=== PATIENT | female | born 2000 | race Caucasian/White ===

== ENCOUNTER 2022-01-19 14:40 | Emergency (ER) | payer SELFPAY ==
[2022-01-19 14:41] VITALS: BP 143/85; PULSE 126; RESP 20; TEMP 36.1; O2SAT 99; BMI 23.3
--- NOTE | 2022-01-19 15:15 | ED.VIS.DYS ---
HPI History of Present Illness Chief Complaint: Shortness of Breath Informant: patient Narrative Narrative: Patient is a 21-year-old female with history of anxiety and lung problems since having Covid in 2020. Patient states she was never hospitalized for Covid. States her breathing is been messed up since. She notes for over the past few days she has been more short of breath and having chest tightness. She states she will intermittently get a pulsating/sharp pain in her chest that last for less than a minute. She is been using her albuterol inhaler 2-4 times a day and is not really helping anymore. She feels that she is wheezing. She has a mild cough. Denies any fever. Denies any nasal congestion or sore throat. She went to an urgent care and they listen to her lungs and were concerned so they recommend she come to the emergency room. Patient is never seen critical care educator for her breathing stating she does not have insurance. She does not have a formal diagnosis of asthma. No other complaints at this time. She denies any tobacco use. She states she smokes marijuana infrequently. Has not used any recently. Is not concerned for . Is not on any medications on a daily basis. [facility] Home Medications albuterol 90 mcg INHALATION PRN PRN 01/19/22 [History Last Taken Unknown] prednisone 40 mg PO DAILY #8 tab 01/19/22 [Rx Last Taken Unknown] Allergy/AdvReac Type Severity Reaction Status Date / Time No Known Allergies Allergy Verified 01/19/22 14:43 Social History Smoking Status: Never smoker [facility] ED Constitutional Constitutional ED: Denies chills or fever(s) Eyes Eyes: Denies change in vision ENT ENT ED: Denies ear pain, rhinorrhea or sore throat Cardiovascular Cardiovascular: Reports chest pain; Denies palpitations or racing heartbeat Respiratory/Chest Respiratory/Chest: Reports cough and dyspnea; Denies dyspnea on exertion Gastrointestinal Gastrointestinal: Denies abdominal pain, diarrhea or vomiting Genitourinary Genitourinary ED: Denies dysuria or hematuria Musculoskeletal Musculoskeletal: Denies arthralgias or myalgias Integumentary Denies rash Neurologic Neurologic: Denies headache(s) or weakness Psychiatric Psychiatric: Denies depression EXAM Physical Exam Const Vital Signs: 01/19/22 14:41 01/19/22 15:11 01/19/22 15:43 Temperature 96.9 F L Temperature Source Temporal Pulse Rate 126 H Respiratory Rate 20 H 20 H Respiratory Effort Short of Breath Respiratory Depth Normal Respiratory Pattern Tachypnea Normal Blood Pressure 143/85 H Blood Pressure Mean 104 Pulse Ox 99 Oxygen Delivery Method Room Air 01/19/22 16:19 Temperature Temperature Source Pulse Rate 98 Respiratory Rate 18 Respiratory Effort Respiratory Depth Respiratory Pattern Blood Pressure 115/77 Blood Pressure Mean 89 Pulse Ox 100 Oxygen Delivery Method Room Air Positive well nourished and well developed General Appearance ED: well developed and NAD HEENT Reports TM's clear and moist mucous membranes HEENT Narrative: Normal oropharynx atraumatic Tympanic Membrane ED: Yes TM's clear Eyes PERRL and EOMs intact bilaterally Neck no lymphadenopathy, supple, no meningeal signs and no JVD Resp normal respiratory effort Resp Narrative: Patient has diminished breath sounds as well as rhonchi at the bases and expiratory wheezing present Auscultation: diminished lung sounds GI non-tender and non-distended Palpation: soft Back/Spine normal to inspection Extremity normal to inspection General Extremety ED: Negative for edema or tenderness General Extremity: Negative for edema Neuro oriented x3 Sensorium / Orientation: alert Motor Exam: Negative for general weakness Psych mental status grossly normal Skin Lesions: no lesions Rashes: no rashes MDM MDM MDM Narrative Medical decision making narrative: Patient evaluated for chest tightness and wheezing. Initially she is tachycardic however her blood pressure is normal and she is not tachypneic. Patient overall is very well-appearing and presentation is consistent with reactive airway/asthma exacerbation. Patient is given a dose of prednisone and a DuoNeb/albuterol aerosol. Patient significant for with the symptoms. Low suspicion for any other more severe cause of her symptoms such as pneumonia, ACS, pericarditis or PE. Discussed with patient her most likely diagnosis is reactive airway however I cannot completely rule out more severe processes. She is comfortable just doing breathing treatments and steroids at this time especially as she has improvement with it. She will return to the emergency room if her symptoms worsen or change. Patient discharged home in stable condition. She is given outpatient resources for [facility] as she does not have insurance or primary care doctor. Discharge Plan Triage Chief Complaint: Shortness of Breath ED Provider: Godman,Alejandra Dx/Rx/DC Orders Clinical Impression: Reactive airway disease with wheezing, Shortness of breath Instructions: ED Bronchitis with Wheezing (Adult) Prescriptions: New prednisone 20 mg tablet 40 mg PO DAILY Qty: 8 RF: 0 No Action albuterol 90 mcg/actuation Aerosol 90 mcg INHALATION PRN PRN (Reason: shortness of breath) RF: 0 Primary Care Provider: Care Physician,No Primary Referrals: Marcy Galloway [NON-STAFF] - Care Physician,No Primary [Primary Care Provider] - Activity Restrictions/Additional Instructions: Continue using your inhaler. For the next 24 hours you may use it up to every 4 hours and after that every 6 hours as needed for shortness of breath. Return if you develop worsening symptoms, including difficulty breathing, more severe chest pain or high fever. Disposition Disposition: Home, Self Care
[2022-01-19] MEDS: predniSONE 20 MG Tablet 60 MG PO (15:23)
[2022-01-19] MEDS: Ipratropium/Albuterol Sulfate 3 ML AMPUL.NEB INHALATION (15:40)
[2022-01-19] MEDS: Albuterol 2.5 MG/3 ML VIAL.NEB. INHALATION (15:40)
[2022-01-19 15:43] VITALS: RESP 20
[2022-01-19 16:19] VITALS: BP 115/77; PULSE 98; RESP 18; O2SAT 100
--- NOTE | 2022-01-19 16:20 | CM.ED ---
FITO Note Referral Source: Case Find Referral Reason : No PCP SW reviewed patient's chart. Patient has no PCP. Patient also has no insurance. SW provided patient with a financial packet. SW remains available if needs arise. Plan: Resources provided Nadira ROSSI
[2022-01-19 16:32] VITALS: BP 126/74; PULSE 89; RESP 17; O2SAT 99
== END 2022-01-19 16:35 | disposition home or self-care (01) ==
PROVIDERS: Emergency Provider Emergency Medicine; Visit Provider Emergency Medicine
DX: J45.909 Unspecified asthma, uncomplicated (principal); Z86.16 Personal history of COVID-19
CPT/HCPCS: 94640; 99283

== ENCOUNTER 2023-10-10 09:41 | Emergency (ER) | payer BC, SELFPAY ==
[2023-10-10 09:42] VITALS: BP 123/83; PULSE 68; RESP 14; TEMP 35.7; O2SAT 98; BMI 26.7
--- NOTE | 2023-10-10 10:08 | CT_ITS ---
EXAM: CT HEAD WITHOUT INTRAVENOUS CONTRAST CLINICAL INDICATION: trauma TECHNIQUE: Multiple axial images were obtained of the head without intravenous contrast. This CT exam was performed using one or more of the following dose reduction techniques: automated exposure control, adjustment of the mA and/or kV according to patient size, and/or use of iterative reconstruction technique. COMPARISON: No relevant prior studies available. FINDINGS: BRAIN AND EXTRA-AXIAL SPACES: Normal. No intra- or extra-axial hemorrhage. No acute infarct. No intracranial mass or mass effect. There is preservation of the scanlon/white matter interface. Posterior fossa structures are unremarkable. Ventricles are appropriate for age. No hydrocephalus. Basal cisterns are patent. BONES/JOINTS: No suspicious lytic or blastic abnormality. SINUSES: No acute sinusitis. MASTOID AIR CELLS: Normal. Clear. CT/Brain/Head without Contrast IMPRESSION: Normal CT brain without intravenous contrast. Electronically Signed: Bhargav Lynn MD at 11:23 EST ,
--- NOTE | 2023-10-10 10:10 | EX.ED.DYSGE1 ---
HPI History of Present Illness Chief Complaint: Syncope Informant: patient Narrative Narrative: Patient states that on Saturday night at approximately 0100 hrs. she felt the need to use her inhaler. She states that she inhaled and found herself on the floor. She believes that she passed out. She states her coffee table was moved and her plant was on the floor. She states the scratches on her face are from her spiral notebook. States she had some bleeding in her mouth. Since that time she has had headache and some dizziness. She has not had syncope before. She denies any loss of bowel or bladder control. [facility] Medical History (Updated 10/10/23 @ 10:[address] Gael Heard DO) Asthma Home Medications albuterol 90 mcg/actuation aerosol inhaler 90 mcg inhalation PRN PRN shortness of breath 01/19/22 [History Last Taken Unknown] prednisone 20 mg tablet 40 mg (2 x 20 mg) PO DAILY #8 tabs 01/19/22 [Rx Last Taken Unknown] Allergy/AdvReac Type Severity Reaction Status Date / Time No Known Allergies Allergy Verified 01/19/22 14:43 Social History Smoking Status: Never smoker ROS ROS ED Constitutional Constitutional ED: Denies chills or weight loss Eyes Eyes: Denies change in vision or diplopia ENT ENT ED: Denies ear pain, rhinorrhea or sore throat Cardiovascular Cardiovascular: Reports other Details: Syncope ; Denies chest pain, orthopnea, palpitations or racing heartbeat Respiratory/Chest Respiratory/Chest: Denies cough, dyspnea or orthopnea Gastrointestinal Gastrointestinal: Denies abdominal pain, diarrhea, nausea or vomiting Genitourinary Genitourinary ED: Denies dysuria, hematuria or urinary frequency Musculoskeletal Musculoskeletal: Denies arthralgias or myalgias Integumentary Reports Abrasions; Denies abscess Neurologic Neurologic: Reports headache(s) and other Details: Dizziness ; Denies paresthesias or weakness Psychiatric Psychiatric: Denies anxiety, depression, suicidal ideation or suicidal thoughts Endocrine Endocrinology: Denies polydipsia, polyphagia or polyuria Allergic/Immunologic Allergic/Immunologic ED: Denies mouth swelling, tongue swelling or urticaria EXAM Physical Exam Const Vital Signs: 10/10/23 09:42 10/10/23 09:42 Temperature 96.2 F L Temperature Source Temporal Pulse Rate 68 Respiratory Rate 14 Respiratory Effort Normal Non-Labored Blood Pressure 123/83 H Blood Pressure Mean 96 Pulse Ox 98 Oxygen Delivery Method Room Air Positive well nourished and well developed General Appearance ED: well developed HEENT Reports normocephalic and moist mucous membranes HEENT Narrative: Right infraorbital region demonstrates some mild swelling and linear superficial abrasions. There is a small abrasion to the oral mucosa just anterior to her upper frenulum. No dental trauma noted. Midface is stable. No septal hematoma. Eyes PERRL and EOMs intact bilaterally Eyes Narrative: No subconjunctival hemorrhage or hyphema noted. Neck no lymphadenopathy, supple and no JVD Resp normal respiratory effort and clear to auscultation bilaterally Cardio regular rate, regular rhythm and no murmurs GI normal to inspection, nondistended, normoactive bowel sounds and non-tender Palpation: soft Back/Spine no CVA tenderness and normal ROM Extremity normal to inspection General Extremety ED: Negative for edema General Extremity: Negative for edema Neuro oriented x3 and CN's II-XII intact bilaterally Sensorium / Orientation: alert Motor Exam: strength 5/5 throughout Psych mental status grossly normal Mood & Affect: Negative for depressed or tearful Skin no rashes or lesions noted and no wounds MDM MDM MDM Narrative Medical decision making narrative: Basic blood work including troponin was essentially normal. Normal white count hemoglobin and platelet counts. BMP was normal. Troponin at 4. test negative. My independent interpretation of the chest x-ray is No acute process. CT of the brain was negative. Patient's EKG is a normal sinus rhythm. Clinically I suspect that the patient had a syncopal episode and now has a mild concussion. Will treat symptomatically and supportively. Follow-up as needed return if worsening or recurrence History & Record Review Discussion w/independent historian: Patient Lab Data Attestation: I reviewed the patient's lab results. Labs: Laboratory Results - last 24 hr 10/10/23 10:23 WBC 8.8 RBC 4.49 Hgb 12.8 Hct 40.9 MCV 91.1 MCH 28.5 MCHC 31.3 L RDW Std Deviation 43.7 RDW Coeff of Josefina 13.0 Plt Count 324 MPV 9.9 Immature Gran % (Auto) 0.300 Neut % (Auto) 71.3 H Lymph % (Auto) 17.8 L Edmunds % (Auto) 5.4 Eos % (Auto) 4.1 Baso % (Auto) 1.1 H Absolute Neuts (auto) 6.3 Absolute Lymphs (auto) 1.57 Nucleated RBC % 0 Sodium 141 Potassium 4.0 Chloride 110 H Carbon Dioxide 28.0 Anion Gap 3 L BUN 11 Creatinine 0.73 Estim Creat Clear Calc 111.24 Est GFR (MDRD) Af Amer 125 Est GFR (MDRD) Non-Af 103 BUN/Creatinine Ratio 15.0 Glucose 99 Calcium 9.2 Troponin I High Sens 4 Serum , Qual NEGATIVE Radiography Diagnostic Testing: Clinical Impression(s) from Imaging Studies Brain CT 10/10/23 10:08 IMPRESSION: Normal CT brain without intravenous contrast. Electronically Signed: Bhargav Lynn MD at 11:23 EST , Chest X-Ray 10/10/23 10:38 IMPRESSION: Normal x-ray examination of the chest. Electronically Signed: Urbano Orellana MD at 11:07 EST , EKG Initial EKG: Attestation: I personally reviewed and interpreted this EKG as follows: Comments: Normal sinus rhythm with a ventricular rate of 62 bpm. Normal QT interval. No preexcitation noted Discharge Plan Triage Chief Complaint: Syncope ED Provider: Gael Heard Dx/Rx/DC Orders Prescriptions: No Action albuterol 90 mcg/actuation Aerosol 90 mcg INHALATION PRN PRN (Reason: shortness of breath) prednisone 20 mg tablet 40 mg PO DAILY Qty: 8 0RF Primary Care Provider: Ana Razo Referrals: Care Physician,No Primary [Non-Staff] -
--- NOTE | 2023-10-10 10:11 | ED.RN ---
NO OLD EKG
[2023-10-10 10:28] LABS: Absolute Lymphocyte Count 1.57 X10^3/uL (0.83-4.51); Absolute Neutrophil Count 6.3 X10^3/uL (2.0-7.7); Basophil% 1.1 % (0-1); Eosinophil# 0.36 X10^3/uL; Eosinophils% 4.1 % (0-5); Hematocrit 40.9 % (37-47); Hemoglobin 12.8 g/dL (12.0-15.0); Lymphocyte # 1.57 X10^3/ul (0.83-4.51); Lymphocyte % 17.8 % (19-41); Mean Corp Hgb Conc 31.3 g/dL (32-36); Mean Corpuscular Hgb 28.5 pg (27.0-32.0); Mean Corpuscular Volume 91.1 fL (81-99); Mean Platelet Vol. 9.9 fl (6.2-12.0); Monocyte# 0.48 X10^3/uL; Monocyte% 5.4 % (0-10); NRBC Flagged by Analyzer 0 % (0-5); Neutrophil # 6.27 X10^3/uL (2.7-7.7); Neutrophil % 71.3 % (47-70); Platelet Count 324 K/mm3 (150-450); RBC Distribution Width SD 43.7 fl (35.1-43.9); Red Blood Count 4.49 M/mm3 (4.2-5.4); White Blood Count 8.8 K/mm3 (4.4-11.0)
--- NOTE | 2023-10-10 10:38 | RAD_ITS ---
STUDY: X-RAY CHEST REASON FOR EXAM: Female, 23 years old. Syncope. TECHNIQUE: Single frontal view of the chest. COMPARISON: None. FINDINGS: The lungs are clear and expanded. There is no demonstrated pleural abnormality. Normal size heart. Normal mediastinum and duane. Normal visualized pulmonary arteries. Normal visualized aortic arch and descending thoracic aorta. Normal visualized thoracic spine. Normal visualized ribs, clavicles, and shoulders. No abnormality of the visualized soft tissue structures of the upper abdomen. RAD/Chest 1 View (Portable) IMPRESSION: Normal x-ray examination of the chest. Electronically Signed: Urbano Orellana MD at 11:07 [facility] ,
[2023-10-10 10:47] LABS: Anion Gap 3 (5-15); BUN 11 mg/dL (7-18); Calcium,Total 9.2 mg/dL (8.5-10.1); Chloride 110 mmol/L (98-107); Creatinine, Serum 0.73 mg/dL (0.55-1.02); EST Glomerular Filtration Rate 103 mL/min (>60); Est Glom Filt Rate - Afr Amer 125 mL/min (>60); Estimated Creatinine Clearance 111.24 ml/min; Glucose 99 mg/dL (74-106); Sodium Level 141 mmol/L (136-145); Troponin-I HS 4 pg/mL (3.0-54.0)
[2023-10-10 10:56] LABS: Internal QC Validated? YES +Cl - CLEAR BKGD; Pregnancy, Serum, hCG Quali. NEGATIVE Negative
[2023-10-10 11:42] VITALS: BP 109/84; PULSE 72; RESP 15; O2SAT 100
== END 2023-10-10 11:47 | disposition home or self-care (01) ==
PROVIDERS: Emergency Provider Emergency Medicine; PCP Nurse Practitioner Family; Visit Provider Emergency Medicine
DX: R55 Syncope and collapse (principal); J45.909 Unspecified asthma, uncomplicated; R51.9 Headache, unspecified
CPT/HCPCS: 70450; 71045; 80048; 84484; 84703; 85025; 93005; 99284; A4216